=== PATIENT | male | born 1950 | race Caucasian/White ===

== ENCOUNTER 2022-06-10 09:25 | Emergency (ER) | payer OTHER, BC ==
--- OUTSIDE RECORDS SUMMARY | 2022-06-10 09:28 | XMS REPORT | Continuity of Care Document ---
:1950 Author Organization [facility] t Address [address] [place] [address] [address] [place] [address] Care Team Providers Name Role Phone Unavailable Unavailable Unavailable Problems This patient has no known problems. Allergies, Adverse Reactions, Alerts This patient has no known allergies or adverse reactions. Medications This patient has no known medications. Procedures This patient has no known procedures. Results Test Description Test Time Test Comments Results Result Comments Source TSH REFLEX TO FREE T4 2021-11-26 09:49:37 Test Item Value Reference Range Interpretation Comme nts TSH REFLEX TO FREE T4 (test code = 2834) 0.820 UIU/ML 0.400-4.100 ALBUMIN/CREATININE RATIO, URINE, [id number] 03:52:43 Test Item Value Reference Range Interpretation Comments CREATININE, URINE, 59.0 MG/DL NOT ESTAB RANDOM (test code = 2072) ALBUMIN, URINE, 0.9 MG/DL NOT ESTAB RANDOM (test code = 76692) CALC 15 MG/G <30 Note: Albumin/ Creatinine ALBUMIN/CREAT, RND ratio ref erence interval (test code = reflects ADA an d NKF 24534) guidelines. UNL ESS OTHERWISE INDIC ATED, ALL TESTING PERFORM [facility] [address] [place] [address] LABORATORY DIRE CTOR: Mayda CHILDRESS. CLIA NUMBER [id number] CAP ACCREDITATION N O. [id number] UA, MICROSCOPIC, REFLEX TO [id number] 03:09:42 Test Item Value Reference Range Interpretation Comments COLOR (test code = YELLOW YELLOW-STRAW 1501) APPEARANCE (test code = CLEAR CLEAR 1502) SPECIFIC GRAVITY (test 1.036 1.005-1.035 H code = 1503) LEUKOCYTE ESTERASE NEGATIVE NEGATIVE (test code = 1504) NITRITE (test code = NEGATIVE NEGATIVE 1505) pH (test code = 1506) 7.0 5.0-9.0 PROTEIN (test code = NEGATIVE NEGATIVE 1507) GLUCOSE (test code = 3+ NEGATIVE A 1508) KETONES (test code = NEGATIVE NEGATIVE 1509) UROBILINOGEN (test code 1.0 MG/DL See_Comment [Au tomated message] = 1510) The system [employer] generated this result transmitted ref erence range: <=2.0. T he reference range was not used to int erpret this result as normal/abnormal . BILIRUBIN (test code = NEGATIVE NEGATIVE 1511) OCCULT BLOOD (test code NEGATIVE NEGATIVE = 1512) WHITE BLOOD CELLS (test 0-5 /HPF 0-5 code = 1513) RED BLOOD CELLS (test 0-2 /HPF 0-5 code = 1514) EPITHELIAL CELLS (test 0-5 /HPF 0-5 code = 10312) BACTERIA (test code = NONE SEEN NONE SEEN 1515) CASTS, HYALINE (test NONE SEEN NONE-TRACE code = 1517)
--- NOTE | 2022-06-10 10:13 | RAD REPORT ---
EXAM DESCRIPTION: CT - Thorax Wo Con - 06/10/2022 9:53 am CLINICAL HISTORY: fall/ rib painon the left side, trauma was 5 days earlier COMPARISON: No comparisons TECHNIQUE: Axial 5 mm thick images of the chest were obtained without IV contrast. All CT scans are performed using dose optimization technique as appropriate and may include automated exposure control or mA/KV adjustment according to patient size. FINDINGS: No pulmonary contusion or acute lung parenchymal process identified. Sub pleural bulla and bleb formation is present in the upper lung trimble. No pleural thickening or pleural effusion. No pn eumothorax. No abnormal mediastinal or hilar masses or lymphadenopathy seen. No gross aortic or pulmonary artery finding suspected. Assessment is limited in the absence of IV contrast. No chest wall mass or abnormal axillary lymphadenopathy. No displaced rib fractures are present and n o nondisplaced rib fractures identifiable. There is no measurable hematoma or contusion changes in th e left-side chest soft tissues. Limited upper abdomen imaging shows no suspicious finding. IMPRESSION: Negative non-contrast CT chest examination for acute finding.
--- NOTE | 2022-06-10 10:19 | ER ---
Nurse's Notes [facility] Name: Andrew Ayoub Age: 71 yrs Sex: Male : 1950 Arrival Date: 06/10/2022 Time: :28 Bed DIS2 Private MD: Diagnosis: Contusion of left back wall of thorax Presentation: 06/10 09:50 Chief complaint: Patient states: had a fall five days ago, fell from standing , c/o iw left rib pain. 09:50 Acuity: JACEK 3 iw 09:50 Method Of Arrival: Ambulatory iw 09:50 Coronavirus screen: At this time, the client does not indicate any symptoms associated iw with coronavirus-19. Ebola Screen: Patient negative for fever greater than or equal to 101.5 degrees Fahrenheit, and additional compatible Ebola Virus Disease symptoms Patient denies exposure to infectious person. Patient denies travel to an Ebola-affected area in the 21 days before illness onset. No symptoms or risks identified at this time. Initial Sepsis Screen: Does the patient meet any 2 criteria? No. Patient's initial sepsis screen is negative. Does the patient have a suspected source of infection? No. Patient's initial sepsis screen is negative. Risk Assessment: Do you want to hurt yourself or someone else? Patient reports no desire to harm self or others. Onset of symptoms was June 05, 2022. Historical: - Allergies: 09:52 No Known Allergies; iw - Home Meds: 09:52 Metformin Oral [Active]; Glipizide Oral [Active]; iw - PMHx: 09:52 Diabetes mellitus; iw - Family history:: not pertinent. - Hospitalizations: : No recent hospitalization is reported. Vital Signs: 09:50 BP 126 / 67; Pulse 79; Resp 16; Temp 98.1; Pulse Ox 95% on R/A; iw ED Course: :28 Patient arrived in ED. mr 09:30 Shaan Sharif MD is Attending Physician. rn 09:49 Ledy Rodriguez, MARY is Primary Nurse. iw 09:50 Triage completed. iw 09:53 Arm band placed on. iw 09:55 Thorax Wo Con In Process Unspecified. EDMS Administered Medications: No medications were administered Outcome: 10:18 Discharge ordered by . rn 10:30 Patient left the ED. iw Signatures: Dispatcher [employer] EDMS Ndiaye, Daisy mr Michael, Ledy, MARY RN iw Shaan Sharif MD MD rn
--- NOTE | 2022-06-10 10:19 | EDPHYS ---
Physician Documentation [facility] Name: Andrew Ayoub Age: 71 yrs Sex: Male : 1950 Arrival Date: 06/10/2022 Time: 09:28 Bed DIS2 Private MD: ED Physician Shaan Sharif HPI: 06/10 10:13 This 71 yrs old Male presents to ER via Ambulatory with complaints of Fall Injury, rib rn pain. 10:13 Details of fall: The patient fell from an upright position. Onset: The symptoms/episode rn began/occurred 5 day(s) ago. Associated injuries: The patient sustained injury to the chest, contusion, pain with breathing, pain with movement, tenderness. Severity of symptoms: At their worst the symptoms were moderate, in the emergency department the symptoms are unchanged. The patient has not experienced similar symptoms in the past. The patient has not recently seen a physician. Pt reports fall 5 days ago, was out of town, hit left chest/ribs on fountain. No other injury. + pain with movement and deep breath on that side. . Historical: - Allergies: 09:52 No Known Allergies; iw - Home Meds: 09:52 Metformin Oral [Active]; Glipizide Oral [Active]; iw - PMHx: 09:52 Diabetes mellitus; iw - Family history:: not pertinent. - Hospitalizations: : No recent hospitalization is reported. ROS: 10:13 Constitutional: Negative for fever, chills, and weight loss, Cardiovascular: + left rn chest/rib pain Respiratory: Negative for shortness of breath, cough, wheezing Abdomen/GI: Negative for abdominal pain, nausea, vomiting, diarrhea, and constipation, Back: Negative for injury and pain, MS/Extremity: Negative for injury and deformity, Neuro: Negative for headache, weakness, numbness, tingling, and seizure. Exam: 10:13 Constitutional: This is a well developed, well nourished patient who is awake, alert, rn and in no acute distress. Head/Face: Normocephalic, atraumatic. Chest/axilla: + mild tenderness left lateral chest wall, no crepitus Cardiovascular: Regular rate and rhythm. No pulse deficits. Respiratory: No increased work of breathing, no retractions or nasal flaring. Abdomen/GI: soft, non-tender Neuro: Awake and alert, GCS 15 Vital Signs: 09:50 BP 126 / 67; Pulse 79; Resp 16; Temp 98.1; Pulse Ox 95% on R/A; iw MDM: 09:31 Patient medically screened. rn 10:13 Differential diagnosis: contusion, fracture. Differential diagnosis: pneumothorax, rn hemothorax. Data reviewed: vital signs, nurses notes. Counseling: I had a detailed discussion with the patient and/or guardian regarding: the historical points, exam findings, and any diagnostic results supporting the discharge/admit diagnosis, radiology results, the need for outpatient follow up, to return to the emergency department if symptoms worsen or persist or if there are any questions or concerns that arise at home. Special discussion: I discussed with the patient/guardian in detail that at this point there is no indication for admission to the hospital. It is understood, however, that if the symptoms persist or worsen the patient needs to return immediately for re-evaluation. 06/10 09:44 Order name: CT Chest Wo Con rn 06/10 09:49 Order name: Thorax Wo Con; Complete Time: 10:18 EDMS Administered Medications: No medications were administered Disposition Summary: 06/10/22 10:18 Discharge Ordered Location: Home rn Problem: new rn Symptoms: have improved rn Condition: Stable rn Diagnosis - Contusion of left back wall of thorax rn Followup: rn - With: Private Physician - When: As needed - Reason: Recheck today's complaints, Re-evaluation by your physician Discharge Instructions: - Discharge Summary Sheet rn - Rib Contusion rn Forms: - Medication Reconciliation Form rn - Thank You Letter rn - Antibiotic learning operations specialist - Prescription Opioid Use rn Signatures: Dispatcher [employer] EDMS Ledy Rodriguez RN RN iw Shaan Sharif MD MD rn rehabilitation: (The following items were deleted from the chart) 09:47 09:47 CT-CHEST WITHOUT CONTRAST ordered. EDNJ EDMS
[2022-06-11 18:18] VITALS: BP 126/67; TEMP 98.1; O2SAT 95
== END 2022-06-10 10:30 | disposition home or self-care (01) ==
LOC: ER 09:25
DX: S20.222A Contusion of left back wall of thorax, initial encounter (principal); E11.9 Type 2 diabetes mellitus without complications
CPT/HCPCS: 71250; 99282